=== PATIENT | male | born 1965 ===

== ENCOUNTER 2024-10-28 08:33 | Emergency (ER) | payer OTHER ==
[~2024-10-28] VITALS: Ht 182.9 cm; Wt 79.4 kg
[2024-10-28] MEDS ORDERED: Ketorolac Tromethamine 30mg Vial IM ONE (08:45)
[2024-10-28] MEDS ORDERED: Penicillin G Benzathine 1.2 MMU / 2 ML SYR IM ONE (10:00)
== END 2024-10-28 10:15 | disposition home or self-care (01) ==
LOC: ER 08:33
DX: J02.0 Streptococcal pharyngitis (principal); F17.210 Nicotine dependence, cigarettes, uncomplicated
CPT/HCPCS: 87430; 96372; 99283-25; J0561; J1885